=== PATIENT | female | born 1965 | race African-American/Black ===

== ENCOUNTER 2021-07-25 10:16 | Day surgery (SDC) | payer OTHER, SELFPAY ==
[~2021-07-25] VITALS: Ht 165.1 cm; Wt 103.0 kg
[~2021-07-25 10:16] MED LIST: CLON-1170 PO; LIP80 PO; METO50TE2 PO; SYN.1 PO
[2021-07-25] MEDS ORDERED: fentaNYL citrate 0.05 MG/ML VIAL ONE (13:27)
[2021-07-25] MEDS ORDERED: MIDAZOLAM 5 MG/5 ML VIAL ONE (13:27)
[2021-07-25] MEDS ORDERED: MIDAZOLAM 2 MG/2 ML VIAL IVP ONE ×2 (14:00→15:45)
== END 2021-07-25 14:28 | disposition home or self-care (01) ==
LOC: MDS 10:16 → MMU 10:41 → MDS 14:28
PROVIDERS: ATTEND Internal Medicine Gastroenterology
DX: K21.9 Gastro-esophageal reflux disease without esophagitis (principal); K44.9 Diaphragmatic hernia without obstruction or gangrene; K22.2 Esophageal obstruction; E66.9 Obesity, unspecified; I10 Essential (primary) hypertension; F32.9 Major depressive disorder, single episode, unspecified; E78.00 Pure hypercholesterolemia, unspecified; E03.9 Hypothyroidism, unspecified; J45.909 Unspecified asthma, uncomplicated; F17.210 Nicotine dependence, cigarettes, uncomplicated; Z68.37 Body mass index [BMI] 37.0-37.9, adult; Z79.899 Other long term (current) drug therapy; Z20.822 Contact with and (suspected) exposure to COVID-19
CPT/HCPCS: 36415; 43239; 86677; 87426; J2250; J3010

== ENCOUNTER 2023-04-17 21:41 | Inpatient (IN) | payer OTHER ==
[~2023-04-17] VITALS: Ht 165.1 cm; Wt 104.3 kg
[2023-04-17] MEDS ORDERED: LORazepam 2 MG/ML VIAL IVP ONE (21:45)
[2023-04-17 22:00] VITALS: BP 146/87; PULSE 91; RESP 32; TEMP 98.5; O2SAT 97
[2023-04-17 22:27] LABS: BASOPHILS % (AUTO) 0.6 % (0.0-2.0); EOSINOPHILS # (AUTO) 0.1 K/uL (0-0.4); EOSINOPHILS % (AUTO) 0.8 % (0.0-4.0); HEMATOCRIT 41.6 % (36-48); HEMOGLOBIN 13.9 g/dL (12.0-16.0); LYMPHOCYTES # (AUTO) 1.2 K/uL (2.5-16.5); LYMPHOCYTES % (AUTO) 17.3 % (20.5-51.1); MEAN CORPUSCULAR HEMOGLOBIN 31 pg (27-31); MEAN CORPUSCULAR HGB CONC 33 g/dL (33-37); MEAN CORPUSCULAR VOLUME 93.5 fL (80-94); MONOCYTES # (AUTO) 0.7 K/uL (0.8-1.0); MONOCYTES % (AUTO) 10.1 % (1.7-9.3); NEUTROPHILS # (AUTO) 5.1 K/uL (1.8-7.7); NEUTROPHILS % (AUTO) 71.2 % (42.2-75.2); PLATELET COUNT (AUTO) 175 K/uL (140-450); RED BLOOD CELL COUNT(AUTO) 4.45 MIL/uL (4.20-5.40); RED CELL DISTRIBUTION WIDTH 15.5 % (11.6-13.7); WHITE BLOOD COUNT (AUTO) 7.1 K/uL (4.8-10.8)
[2023-04-17 22:50] LABS: ALBUMIN 3.7 g/dL (3.4-5.0); ANION GAP 17.8 (8-16); CALCIUM 8.2 mg/dL (8.5-10.1); CARBON DIOXIDE 24.8 mmol/L (21-32); CREATININE 1.2 mg/dL (0.6-1.3); TOTAL BILIRUBIN 0.7 mg/dL (0.0-1.0); TOTAL PROTEIN, SERUM 7.4 g/dL (6.4-8.2)
[2023-04-17 22:59] LABS: POTASSIUM 2.6 mmol/L (3.5-5.1)
[2023-04-17 23:47] LABS: AMPHETAMINE, URINE NEGATIVE ng/ml (NEG <=1000); BARBITURATE, URINE NEGATIVE ng/ml (NEG <=200); BENZODIAZEPINE, URINE NEGATIVE ng/mL (NEG <=200); CANNABINOID, URINE POSITIVE ng/mL (NEG <=50); COCAINE, URINE NEGATIVE ng/mL (NEG <=300); OPIATE, URINE POSITIVE ng/mL (NEG <=2000)
[2023-04-17 23:48] LABS: PHENCYCLIDINE SCREEN,URINE NEGATIVE ng/mL (NEG <=25)
[2023-04-18] MEDS ORDERED: diphenhydrAMINE 50 MG/ML VIAL IVP ONE (00:30)
[2023-04-18 01:14] LABS: ANION GAP 13.3 (8-16); CALCIUM 8.3 mg/dL (8.5-10.1); CARBON DIOXIDE 28.2 mmol/L (21-32); CREATININE 1.2 mg/dL (0.6-1.3)
[2023-04-18 01:22] LABS: POTASSIUM 2.5 mmol/L (3.5-5.1)
[2023-04-18 01:25] LABS: MAGNESIUM 1.6 mg/dL (1.8-2.4); THYROID STIMULATING HORMONE 2.51 uIU/mL (0.34-3.74)
[2023-04-18] MEDS ORDERED: POTASSIUM CHLORIDE 10 MEQ TABER PO ONE (02:00)
[2023-04-18] MEDS ORDERED: MAG SULF 2000 MG/WATER PREMIX 50 ML IV ONE (02:00)
[2023-04-18] MEDS ORDERED: HYDROcodone/APAP 5/325 MG 1 TAB TAB PO PRN (02:05)
[2023-04-18] MEDS ORDERED: MAGNESIUM OXIDE 400 MG TAB PO PRN (02:05)
[2023-04-18] MEDS ORDERED: ONDANSETRON 4 MG/2 ML VIAL IVP PRN (02:05)
[2023-04-18] MEDS ORDERED: MAG SULF 2000 MG/WATER PREMIX 50 ML IV PRN (02:05)
[2023-04-18] MEDS ORDERED: POTASSIUM CHLORIDE 10 MEQ TABER PO PRN (02:05)
[2023-04-18] MEDS ORDERED: KCL 20 MEQ IN 100 mL PREMIX 200 ML IV PRN (02:05)
[2023-04-18] MEDS: NACL 0.9% 1,000 ML IV SCH ×3 (04:30→18:14)
[2023-04-18 07:04] LABS: ANION GAP 12.9 (8-16); CALCIUM 8.5 mg/dL (8.5-10.1); CARBON DIOXIDE 29.7 mmol/L (21-32)
[2023-04-18] MEDS ORDERED: ARIP2TAB2 PO (07:18)
[2023-04-18] MEDS ORDERED: LAM200 PO (07:18)
[2023-04-18] MEDS ORDERED: HYDR-3233 PO (07:18)
[2023-04-18 07:23] LABS: POTASSIUM 2.6 mmol/L (3.5-5.1)
[2023-04-18] MEDS: MORPHINE SULFATE 2 MG/ML SYR IVP PRN ×3 (08:36→20:42)
[2023-04-18 09:36] VITALS: PULSE 95; RESP 20; O2SAT 97
[2023-04-18 11:10] VITALS: PULSE 95; RESP 20; O2SAT 97
[2023-04-18 12:00] VITALS: BP 149/75; PULSE 89; PULSE 92; RESP 18; TEMP 97.3; O2SAT 96
[2023-04-18] MEDS ORDERED: INSULIN LISPRO SLIDING SCALE 100 UNITS/ML VIAL SUBQ PRN (12:50)
[2023-04-18] MEDS ORDERED: DEXTROSE 50% 50 ML SYR IVP PRN (12:50)
[2023-04-18 12:52] LABS: ANION GAP 11.9 (8-16); CALCIUM 8.3 mg/dL (8.5-10.1); CARBON DIOXIDE 30.4 mmol/L (21-32); CREATININE 1.1 mg/dL (0.6-1.3); POTASSIUM 3.3 mmol/L (3.5-5.1)
[2023-04-18] MEDS ORDERED: POTASSIUM CHLORIDE 20% 40 MEQ/15 ML UDC GT SCH (15:05)
[2023-04-18] MEDS ORDERED: FUROSEMIDE 20 MG/2 ML VIAL IVP SCH (15:11)
[2023-04-18] MEDS: NIFEdipine 30 MG TABER PO SCH (15:26)
[2023-04-18 16:00] VITALS: BP 157/83; PULSE 88; PULSE 91; RESP 18; TEMP 97.4; O2SAT 99
[2023-04-18] MEDS: BLOOD GLUCOSE MONITORING 1 DEV DEV FS SCH ×2 (16:30→21:07)
[2023-04-18] MEDS ORDERED: traZODone 50 MG TAB PO PRN (16:45)
[2023-04-18 18:18] LABS: ANION GAP 10.8 (8-16); CALCIUM 8.1 mg/dL (8.5-10.1); CARBON DIOXIDE 30.3 mmol/L (21-32); CREATININE 1.3 mg/dL (0.6-1.3); POTASSIUM 3.1 mmol/L (3.5-5.1)
[2023-04-18 20:00] VITALS: BP 179/92; PULSE 87; PULSE 94; RESP 16; TEMP 97.2; O2SAT 99
[2023-04-18] MEDS ORDERED: CLONIDINE HYDROCHLORIDE 0.1 MG TAB PO PRN (20:15)
[2023-04-18] MEDS ORDERED: CLONIDINE HYDROCHLORIDE 0.1 MG TAB ONE (20:28)
[2023-04-18] MEDS: SUCRALFATE 1 GM TAB PO SCH (20:42)
[2023-04-18] MEDS: PANTOPRAZOLE 40 MG INJ VIAL IVP SCH (20:43)
[2023-04-18] MEDS: GABAPENTIN 100 MG CAP PO SCH (20:51)
[2023-04-19] VITALS: BP 165/87; PULSE 76; PULSE 93; RESP 17; TEMP 97.5; O2SAT 99
[2023-04-19 00:36] LABS: ANION GAP 7.4 (8-16); CALCIUM 7.8 mg/dL (8.5-10.1); CARBON DIOXIDE 32.3 mmol/L (21-32); CREATININE 1.2 mg/dL (0.6-1.3)
[2023-04-19 00:46] LABS: POTASSIUM 2.7 mmol/L (3.5-5.1)
[2023-04-19] MEDS: MORPHINE SULFATE 2 MG/ML SYR IVP PRN ×2 (03:33→13:00)
[2023-04-19 04:00] VITALS: BP 160/90; PULSE 87; PULSE 90; RESP 18; TEMP 97.6; O2SAT 98
[2023-04-19] MEDS: ACETAMINOPHEN 325 MG TAB PO PRN ×2 (04:51→13:03)
[2023-04-19] MEDS: BLOOD GLUCOSE MONITORING 1 DEV DEV FS SCH ×2 (06:37→11:42)
[2023-04-19 07:31] LABS: BASOPHILS % (AUTO) 0.7 % (0.0-2.0); EOSINOPHILS # (AUTO) 0.1 K/uL (0-0.4); EOSINOPHILS % (AUTO) 1.9 % (0.0-4.0); HEMATOCRIT 41.9 % (36-48); HEMOGLOBIN 13.8 g/dL (12.0-16.0); LYMPHOCYTES # (AUTO) 0.8 K/uL (2.5-16.5); LYMPHOCYTES % (AUTO) 15.5 % (20.5-51.1); MEAN CORPUSCULAR HEMOGLOBIN 31 pg (27-31); MEAN CORPUSCULAR HGB CONC 33 g/dL (33-37); MEAN CORPUSCULAR VOLUME 94.9 fL (80-94); MONOCYTES # (AUTO) 0.4 K/uL (0.8-1.0); MONOCYTES % (AUTO) 7.7 % (1.7-9.3); NEUTROPHILS # (AUTO) 3.9 K/uL (1.8-7.7); NEUTROPHILS % (AUTO) 74.2 % (42.2-75.2); PLATELET COUNT (AUTO) 154 K/uL (140-450); RED BLOOD CELL COUNT(AUTO) 4.41 MIL/uL (4.20-5.40); RED CELL DISTRIBUTION WIDTH 15.3 % (11.6-13.7); WHITE BLOOD COUNT (AUTO) 5.3 K/uL (4.8-10.8)
[2023-04-19 07:39] LABS: ALBUMIN 3.2 g/dL (3.4-5.0); ANION GAP 15.5 (8-16); CARBON DIOXIDE 29.9 mmol/L (21-32); POTASSIUM 3.4 mmol/L (3.5-5.1); TOTAL BILIRUBIN 0.5 mg/dL (0.0-1.0); TOTAL PROTEIN, SERUM 6.9 g/dL (6.4-8.2)
[2023-04-19 08:00] VITALS: BP 144/76; PULSE 83; PULSE 87; RESP 18; TEMP 97.1; O2SAT 94; O2SAT 99
[2023-04-19] MEDS: GABAPENTIN 100 MG CAP PO SCH ×2 (08:28→13:13)
[2023-04-19] MEDS: SUCRALFATE 1 GM TAB PO SCH (08:29)
[2023-04-19] MEDS: NIFEdipine 30 MG TABER PO SCH (08:29)
[2023-04-19] MEDS: PANTOPRAZOLE 40 MG INJ VIAL IVP SCH (08:40)
[2023-04-19] MEDS ORDERED: hydrALAZINE 20 MG/ML VIAL IVP PRN (11:17)
[2023-04-19 12:00] VITALS: BP 166/84; PULSE 126; PULSE 88; RESP 18; TEMP 98.2; O2SAT 94
[2023-04-19 12:18] LABS: ANION GAP 11.2 (8-16); CALCIUM 8.6 mg/dL (8.5-10.1); CARBON DIOXIDE 29.7 mmol/L (21-32); CREATININE 1.1 mg/dL (0.6-1.3); POTASSIUM 3.9 mmol/L (3.5-5.1)
[2023-04-19 14:15] VITALS: BP 153/72; PULSE 88; RESP 18; TEMP 98.2
[2023-04-19 14:36] VITALS: O2SAT 97
[2023-04-19] MEDS ORDERED: KCL 20 MEQ IN 100 mL PREMIX 200 ML IV ONE (15:12)
== END 2023-04-19 15:50 | disposition home or self-care (01) | DRG 426 ==
LOC: MED 21:41 → MTU 04-18 02:09
PROVIDERS: ADMIT Student in an Organized Health Care Education/Training Program; ATTEND Student in an Organized Health Care Education/Training Program
DX: E87.1 Hypo-osmolality and hyponatremia (principal); J96.01 Acute respiratory failure with hypoxia; R65.11 Systemic inflammatory response syndrome (SIRS) of non-infectious origin with acute organ dysfunction; E03.9 Hypothyroidism, unspecified; E87.6 Hypokalemia; E86.1 Hypovolemia; J45.909 Unspecified asthma, uncomplicated; I10 Essential (primary) hypertension; E78.5 Hyperlipidemia, unspecified; K21.9 Gastro-esophageal reflux disease without esophagitis; E66.9 Obesity, unspecified; F12.10 Cannabis abuse, uncomplicated; T50.2X5A Adverse effect of carbonic-anhydrase inhibitors, benzothiadiazides and other diuretics, initial encounter; R13.10 Dysphagia, unspecified; Z88.1 Allergy status to other antibiotic agents; Z88.8 Allergy status to other drugs, medicaments and biological substances; Z79.899 Other long term (current) drug therapy; Z68.38 Body mass index [BMI] 38.0-38.9, adult; Y92.89 Other specified places as the place of occurrence of the external cause
CPT/HCPCS: 36415; 71045; 80048; 80053; 80305; 82948; 83735; 83880; 83935; 84133; 84300; 84443; 84484; 85025; 85651; 86140; 87081; 93005; 96365; 96375; 99285; C9113; J0360; J1200; J1644; J1815; J1940; J2060; J2270; J3475; J3480

== ENCOUNTER 2023-04-30 16:41 | Emergency (ER) | payer OTHER ==
[~2023-04-30] VITALS: Ht 165.1 cm; Wt 103.0 kg
[~2023-04-30 16:41] MED LIST changes: +ARIP2TAB2 PO; +HYDR-3233 PO; +LAM200 PO
[2023-04-30 16:58] VITALS: BP 183/93; PULSE 72; RESP 72; TEMP 96.9; O2SAT 98
[2023-04-30] MEDS ORDERED: hydrALAZINE 20 MG/ML VIAL IM ONE (18:00)
[2023-04-30] MEDS ORDERED: PROCHLORPERAZINE 10 MG/2 ML VIAL IVP ONE (18:05)
[2023-04-30] MEDS ORDERED: hydrALAZINE 20 MG/ML VIAL IVP ONE (18:05)
[2023-04-30] MEDS ORDERED: diphenhydrAMINE 50 MG/ML VIAL IVP ONE (18:05)
[2023-04-30] MEDS ORDERED: ACETAMINOPHEN EXTRA STRENGTH 500 MG TAB PO ONE (18:05)
[2023-04-30 18:42] LABS: BASOPHILS % (AUTO) 0.4 % (0.0-2.0); EOSINOPHILS # (AUTO) 0.1 K/uL (0-0.4); EOSINOPHILS % (AUTO) 0.8 % (0.0-4.0); LYMPHOCYTES # (AUTO) 1.2 K/uL (2.5-16.5); LYMPHOCYTES % (AUTO) 16.3 % (20.5-51.1); MEAN CORPUSCULAR HEMOGLOBIN 31 pg (27-31); MEAN CORPUSCULAR HGB CONC 33 g/dL (33-37); MEAN CORPUSCULAR VOLUME 93.7 fL (80-94); MONOCYTES # (AUTO) 0.7 K/uL (0.8-1.0); MONOCYTES % (AUTO) 8.8 % (1.7-9.3); NEUTROPHILS # (AUTO) 5.4 K/uL (1.8-7.7); NEUTROPHILS % (AUTO) 73.7 % (42.2-75.2); PLATELET COUNT (AUTO) 231 K/uL (140-450); RED BLOOD CELL COUNT(AUTO) 4.48 MIL/uL (4.20-5.40); RED CELL DISTRIBUTION WIDTH 15.6 % (11.6-13.7); WHITE BLOOD COUNT (AUTO) 7.4 K/uL (4.8-10.8)
[2023-04-30 19:00] LABS: ALANINE AMINOTRANSFERASE 55 U/L (12-78); ALBUMIN 3.8 g/dL (3.4-5.0); ALKALINE PHOSPHATASE 94 U/L (50-136); ANION GAP 13.3 (8-16); ASPARTATE AMINOTRANSFERASE 49 U/L (15-37); CALCIUM 8.6 mg/dL (8.5-10.1); CHLORIDE 96 mmol/L (98-107); CREATININE 1.2 mg/dL (0.6-1.3); GFR ARICAN-AMERICAN 60 mL/min (>90); GFR NON ARICAN-AMERICAN 49 mL/min (>90); GLUCOSE 99 mg/dL (74-106); POTASSIUM 3.3 mmol/L (3.5-5.1); SODIUM SERUM 134 mmol/L (136-145); TOTAL BILIRUBIN 0.6 mg/dL (0.0-1.0); TOTAL PROTEIN, SERUM 7.6 g/dL (6.4-8.2); UREA NITROGEN, BLOOD 4 mg/dL (7-18)
[2023-04-30] MEDS ORDERED: LABETALOL 20 MG/4 ML VIAL IVP ONE (19:50)
[2023-04-30 20:10] VITALS: TEMP 97.9
[2023-04-30] MEDS ORDERED: ACET-10509 PO (20:53)
[2023-04-30 20:59] VITALS: BP 181/84; PULSE 76; RESP 21; O2SAT 95
== END 2023-04-30 20:59 | disposition home or self-care (01) ==
LOC: MED 16:41
DX: E11.22 Type 2 diabetes mellitus with diabetic chronic kidney disease (principal); I12.9 Hypertensive chronic kidney disease with stage 1 through stage 4 chronic kidney disease, or unspecified chronic kidney disease; N18.2 Chronic kidney disease, stage 2 (mild); R51.9 Headache, unspecified; E87.1 Hypo-osmolality and hyponatremia; E87.6 Hypokalemia; J45.909 Unspecified asthma, uncomplicated; E03.9 Hypothyroidism, unspecified; E78.5 Hyperlipidemia, unspecified; Z79.899 Other long term (current) drug therapy; Z88.6 Allergy status to analgesic agent
CPT/HCPCS: 36415; 70450; 80053; 84484; 85025; 93005; 96374; 96375; 99285; J0360; J0780; J1200; J3490